=== PATIENT | female | born 1945 | race Caucasian/White ===

== ENCOUNTER 2016-08-10 08:08 | Inpatient (IN) | payer OTHER ==
[2016-06-24 12:07] VITALS: BMI 28.0
--- NOTE | 2016-06-24 12:44 | PAT Medication Instructions ---
Service Date Jun 24, 2016. Current Home Medication List Albuterol Hfa (Ventolin Hfa), 2-4 PUFFS INH Q6H Atorvastatin (Lipitor), 40 MG PO QPM Gabapentin (Neurontin), 200 MG PO QAM Lisinopril (Zestril), 10 MG PO QAM Meloxicam (Mobic), 15 MG PO QAM Metformin Hcl (Glucophage), 500 MG PO BID Pantoprazole (Protonix), 40 MG PO QAM [Clotrimazole], 1 DOSE TOP PRN Medication Instructions For Your Scheduled Surgery - Hold the following medications per surgeon's instructions: Meloxicam (Mobic), 15 MG PO QAM - Hold the following medications 48 hours prior to surgery: Metformin Hcl (Glucophage), 500 MG PO BID - Hold the following medications the morning of surgery: Lisinopril (Zestril), 10 MG PO QAM [Clotrimazole], 1 DOSE TOP PRN - Take the following medications the morning of surgery with a sip of water OTHERWISE NOTHING TO EAT OR DRINK AFTER MIDNIGHT: Albuterol Hfa (Ventolin Hfa), 2-4 PUFFS INH Q6H (use if needed; BRING TO HOSPITAL) Gabapentin (Neurontin), 200 MG PO QAM Pantoprazole (Protonix), 40 MG PO QAM - Take the following medications as scheduled the night before surgery: Albuterol Hfa (Ventolin Hfa), 2-4 PUFFS INH Q6H Atorvastatin (Lipitor), 40 MG PO QPM If you have any questions please call us at [phone] or [phone] or [phone]
[2016-06-24 13:35] LABS: BASO % 0.6 %; BASO ABS # 0.05 K/uL (0-0.2); COMPLETE YES; EOS % 8.5 %; IG% 0.3 %; LYMPH % 25.8 %; LYMPH ABS # 2.03 K/uL (1.2-3.4); MEAN CELL VOLUME 86.2 fL (80-100); MEAN CORPUSCULAR HEMOGLOBIN 28.7 pg (25-34); MEAN CORPUSCULAR HGB CONC 33.3 g/dl (32-36); MEAN PLATELET VOLUME 11.2 fL (7.4-10.4); MONO % 8.1 %; NEUT % 56.7 %; PLATELET COUNT 290 K/uL (130-400); RED BLOOD COUNT 4.87 M/uL (4.2-5.4); WHITE BLOOD COUNT 7.86 K/uL (4.8-10.8)
[2016-06-24 13:46] LABS: PROTHROMBIN TIME (PATIENT) 10.4 SECONDS (9.0-12.0)
--- NOTE | 2016-06-24 13:58 | DIAGNOSTIC IMAGING REPORT ---
CHEST PREADMISSION(PA/LAT) CLINICAL HISTORY: PAT preoperative evaluation COMPARISON STUDY: No previous studies for comparison. FINDINGS: The bones soft tissues and hemidiaphragms are normal. The cardiomediastinal silhouette is normal. The lungs are clear. The pulmonary vasculature is normal. IMPRESSION: Negative chest. Electronically signed by: Armaan Mariee M.D. 06/24/2016 1:55 PM Dictated Date/Time: 06/24/2016 1:55 PM
[2016-06-24 14:12] LABS: ESTIMATED AVERAGE GLUCOSE 137 mg/dl; HA1C FLAG Normal (Normal)
[2016-06-24 15:20] LABS: BUN/CREATININE RATIO 23.4 (10-20); CALCIUM 9.2 mg/dl (8.5-10.1); CREATININE 0.67 mg/dl (0.60-1.20)
--- NOTE | 2016-08-07 11:35 | HISTORY & PHYSICAL EXAMINATION ---
DATE OF ADMISSION: 08/10/2016 CHIEF COMPLAINT: Bilateral knee pain and discomfort, right side greater than left. HISTORY OF PRESENT ILLNESS: The patient is a 70-year-old female from [place] who presents for surgical treatment of her right knee. She has a fairly long history of bilateral knee pain and discomfort, right side greater than left. She has been through extensive conservative treatment over the years. She has been followed by Dr. Rosales recently and referred to me for definitive treatment. She has had steroid shots and viscosupplementation. She was actually scheduled to have her right knee replaced by Dr. Vargas back in May but he left town. She would now like to proceed with knee surgery. PAST MEDICAL HISTORY: 1. Diabetes fairly well controlled with hemoglobin A1c 6.4. 2. Hypertension. 3. Elevated cholesterol. 4. Gastrointestinal reflux disease. PAST SURGICAL HISTORY: Include: 1. Tonsillectomy. 2. Appendectomy. 3. Carpal tunnel release. 4. Tubal ligation. 5. Rotator cuff surgery. 6. Breast aspiration. 7. x2. ALLERGIES: PENICILLIN, REACTION UNKNOWN. Does not sound like a true anaphylactic reaction. CURRENT MEDICINES: Include: 1. Metformin 500 mg twice a day. 2. Atorvastatin 40 mg a day. 3. Gabapentin 100 mg twice a day. 4. Lisinopril 10 mg a day. 5. Meloxicam 15 mg a day. 6. Pantoprazole 40 mg a day. SOCIAL HISTORY: A 70-year-old female. She is . Does not smoke. FAMILY HISTORY: Noncontributory. REVIEW OF SYSTEMS: Significant for diabetes. Denies any chest pain or shortness of breath. No history of DVT or PE. PHYSICAL EXAMINATION: GENERAL: Reveals a pleasant, middle-aged female. She looks a little younger than her stated age. HEAD, EYES, EARS, NOSE, AND THROAT EXAMINATION: Benign. NECK: Supple. No lymphadenopathy. LUNGS: Clear to auscultation. HEART: Regular rate and rhythm. ABDOMEN: Soft, nontender, nondistended. EXTREMITY EXAMINATION: Grossly neurovascularly intact except as follows: Examination of the right knee reveals the patient ambulates with a valgus alignment to her knee. She has got a small knee effusion. Range of motion about 5 degrees short of full extension to 120 degrees of flexion. There is no instability. X-RAYS: X-rays of the knee were reviewed. It shows advanced right knee lateral compartment DJD. She has complete loss of her lateral joint space. She does have a large loose body in the suprapatellar pouch. She has got osteophytes in all 3 compartments ASSESSMENT: A 70-year-old white female with bilateral knee pain and degenerative joint disease, right side more severe than left. She has failed conservative treatment and would like to proceed with surgery. She was actually scheduled for surgery on the outside, but the surgeon left town. PLAN: We are going to take her to the operating room and do a right total knee replacement. The risks and benefits of this procedure were explained to the patient including but not limited to DVT, PE, , infection, neurological injury, vascular injury, bleeding problem, pain, limited range of motion, stiffness, failure to relieve symptoms, etc. The patient understands and desires to proceed. Informed consent was obtained. The patient is planning to be discharged home using the [facility] home health program. Her can assist in her care. She had a negative workup.
[~2016-08-10] VITALS: Ht 167.6 cm; Wt 79.0 kg
[~2016-08-10 08:08] MED LIST: ACETAMINOPHEN 500 MG TAB PO SCH; ATOR-24 PO; BUPIVACAINE 0.25% 30 ML VIAL ONE; BUPIVACAINE 0.5 % 5 MG/1 ML PF 10ML VIAL ONE; BUPIVACAINE LIPOSOME 266 MG, BUPIVACAINE/EPINEPHRINE INJ 50 ML, SODIUM CHLORIDE 0.9% PF... INFIL SCH; CEFAZOLIN 2000 MG/60 ML D5W 60 ML IV SCH; CLOTRIMAZOLE TOP; FAMOTIDINE 20 MG TAB PO SCH; GABA-112 PO; GABAPENTIN 300 MG CAP PO SCH; GLC/500 PO; LACTATED RINGER'S 1000ML 1,000 ML IV SCH; LACTATED RINGER'S 1000ML 500 ML IV ONE; LACTATED RINGER'S 1000ML IV SCH; LISI-461 PO; MELO7.5T5 PO; METOCLOPRAMIDE HCL 10 MG TAB PO SCH; PANT40TA PO; SCOPOLAMINE 1.5 MG TDSY TD SCH; TRANEXAMIC ACID INJ 1,000 MG in SODIUM CHLORIDE 0.9% 100ML 100 ML IV SCH; VNTHFA/IN INH
--- NOTE | 2016-08-10 08:56 | History & Physical Bridge Note ---
H&P Re-Evaluation Bridge Note: I have examined the patient, reviewed the History & Physical and in the interval since the performance of the History & Physical I have noted the following changes of clinical significance: No changes noted
[2016-08-10 09:08] VITALS: BP 183/93; PULSE 97; TEMP 36.4; O2SAT 99; Ht 167.6 cm; Wt 79.0 kg
[2016-08-10] MEDS ORDERED: FENTANYL CITRATE INJ 50 MCG/1 ML 2 ML VIAL ONE (09:29)
[2016-08-10] MEDS ORDERED: MIDAZOLAM HCL 1 MG/ML 2ML VIAL ONE (09:29)
[2016-08-10] MEDS ORDERED: SODIUM CHLORIDE 0.9% PF 50 ML VIAL ONE (10:44)
[2016-08-10] MEDS ORDERED: BACITRACIN 50000 UNIT VIAL ONE (10:44)
[2016-08-10] MEDS ORDERED: BUPIVACAINE LIPOSOME 1/3% 266 MG/20 ML VIAL INFIL ONE (10:44)
[2016-08-10] MEDS ORDERED: BUPIVACAINE/EPINEPHRINE 0.25% 1:200,000 30 ML VIAL ONE (10:44)
[2016-08-10] MEDS ORDERED: ONDANSETRON INJ 2 MG/ML 2 ML VIAL ONE (11:12)
[2016-08-10] MEDS ORDERED: PROPOFOL IV EMULSION 10 MG/ML 20 ML VIAL IV ONE ×2 (11:12→12:07)
[2016-08-10] MEDS ORDERED: PHENYLEPHRINE HCL INJ 10 MG/ML VIAL ONE (11:34)
--- NOTE | 2016-08-10 12:32 | [facility] Post Operative Brief Note ---
Immediate Operative Summary Operative Date August 10, 2016. Pre-Operative Diagnosis Right Knee Advanced Degenerative Joint Disease Post-Operative Diagnosis Right Knee Advanced Degenerative Joint Disease Procedure(s) Performed Right Total Knee Arthroplasty Surgeon Dr. Winter Learning Technologist Surgeon(s) Erick Schmidt PA-C Estimated Blood Loss 50 ml Findings Right Knee DJD Fluids (cc crystalloids) 1400 cc Specimens A. Right Knee Bone and Tissue Drains None Anesthesia Spinal Complication(s) None Disposition Recovery Room / PACU
[2016-08-10] MEDS ORDERED: DEXTROSE 50% 50 ML SYR IV PRN (12:45)
[2016-08-10] MEDS ORDERED: PROMETHAZINE HCL INJ 12.5 MG in SODIUM CHLORIDE 0.9% 50ML 50 ML IV PRN (12:45)
[2016-08-10] MEDS ORDERED: EpHEDrine SULFATE INJ 50 MG/ML AMP IV PRN (12:45)
[2016-08-10] MEDS ORDERED: METOCLOPRAMIDE HCL INJ 5 MG/ML 2 ML VIAL IV PRN (12:45)
[2016-08-10] MEDS ORDERED: ONDANSETRON INJ 2 MG/ML 2 ML VIAL IV PRN ×2 (12:45)
[2016-08-10] MEDS ORDERED: GLUCAGON FOR INJ 1 MG VIAL SQ PRN (12:45)
[2016-08-10] MEDS ORDERED: ATROPINE SULFATE 0.1 MG/ML 5ML SYR IV PRN (12:45)
[2016-08-10] MEDS ORDERED: ALBUTEROL HFA 8 GM INHALER INH PRN (12:45)
[2016-08-10] MEDS ORDERED: MAGNESIUM HYDROXIDE SUSP 30 ML UDC PO PRN (12:45)
[2016-08-10] MEDS ORDERED: BISACODYL 10 MG SUPP PR PRN (12:45)
[2016-08-10] MEDS ORDERED: ZOLPIDEM TARTRATE 5 MG TAB PO PRN (12:45)
[2016-08-10] MEDS ORDERED: CLOTRIMAZOLE 1% CR 15 GM TUBE EXT PRN (12:45)
[2016-08-10] MEDS ORDERED: HYDROmorphone INJ 1 MG/ML SYR IV PRN (12:45)
[2016-08-10] MEDS ORDERED: NALOXONE HCL 0.4 MG/1 ML VIAL/CARP IV PRN (12:45)
[2016-08-10] MEDS ORDERED: ALUMINUM/MAGNESIUM/SIMETH (MAALOX MAX) 30 ML UDC PO PRN (12:45)
[2016-08-10] MEDS ORDERED: GLUCOSE 40% GEL 15 GM TUBE PO PRN (12:45)
[2016-08-10] MEDS ORDERED: FLUMAZENIL 0.1 MG/1 ML 10 ML VIAL IV PRN (12:45)
[2016-08-10] MEDS ORDERED: GLUCOSE 10 TABS/TUBE PO PRN (12:45)
[2016-08-10] MEDS ORDERED: SILVER SULFADIAZINE 1% CR 50 GM JAR EXT PRN (12:45)
--- NOTE | 2016-08-10 13:13 | DIAGNOSTIC IMAGING REPORT ---
RIGHT KNEE 1 OR 2 VIEWS ROUTINE CLINICAL HISTORY: AP/LATERAL IN PACU RIGHT KNEE Right COMPARISON: None. DISCUSSION: Total joint replacement involving the right knee. Good contact between prosthetic and underlying bone. Surgical drains are in position. Expected soft tissue postoperative change IMPRESSION: Anatomic alignment status post total right knee replacement Electronically signed by: Armaan Mariee M.D. 08/10/2016 1:12 PM Dictated Date/Time: 08/10/2016 1:11 PM
--- NOTE | 2016-08-10 13:54 | OPERATIVE REPORT ---
DATE OF OPERATION: 08/10/2016 SURGEON: Jose Winter MD RANCH HAND LIVESTOCK: JUAN Gilbert PREOPERATIVE DIAGNOSIS: Right knee degenerative joint disease. POSTOPERATIVE DIAGNOSIS: Same. PROCEDURE PERFORMED: Right cemented posterior stabilized total knee arthroplasty. COMPLICATIONS: None. ESTIMATED BLOOD LOSS: 50 mL. FLUID REPLACEMENT: 1400 mL fluid replacement. TOURNIQUET TIME: 48 minutes at 300 mmHg. ANESTHESIA: Spinal with adductor canal block. DRAINS: None. SPECIMENS: Right knee sent for pathology. OPERATIVE INDICATIONS: The patient is a 70-year-old female who has had a long history of bilateral knee pain and discomfort, right side greater than left. She has been through extensive conservative treatment without adequate relief. She was actually scheduled to have her knee replaced a year ago, but the surgeon left town. She elected to proceed with treatment at this point. OPERATIVE FINDINGS: Operative findings revealed advanced right knee DJD. She had grade 4 changes in all 3 compartments. Most extensive disease was in the lateral compartment with eburnation of the posterolateral femoral condyle and most of the lateral tibial plateau. She did have extensive grade 4 changes of patellofemoral joint and some spotty grade 4 changes in the medial femoral condyle. Moderate size joint effusion. She had a valgus aligned knee. OPERATIVE IMPLANTS: Operative implants consisted of: 1. Biomet Vanguard size 67.5 right posterior stabilized femoral component. 2. Biomet size 71 tibial tray. 3. A 10 mm posterior stabilized polyethylene insert. 4. A 31 x 8 All-Poly patella. OPERATIVE PROCEDURE: The patient taken to the operating room, identified and placed on the operating table in supine position. All contact areas were appropriately padded. IV antibiotics were provided by anesthesia team. A spinal anesthetic was implemented in the holding area along with an adductor canal block. A Koenig catheter was placed. A right thigh tourniquet was then placed and the right lower extremity was then prepped and draped in the usual sterile fashion. The right leg was elevated and exsanguinated with the use of an Esmarch and tourniquet was placed at 300 mmHg. An anterior approach to the right knee was then performed through a longitudinal incision centered over the patella. Sharp dissection was carried out through the subcutaneous tissues down to the level of the extensor mechanism. A medial parapatellar arthrotomy incision was made. Some subperiosteal dissection was carried out medially. The fat pad was resected from beneath the patellar tendon. The lateral patellofemoral ligament was released. The patella was everted and knee was flexed. The osteophytes were taken off the distal femur. The ACL and PCL released from the distal femur and the tibia subluxated anteriorly. The external tibial alignment jig was then placed in the anterior face of the tibia and adjusted 14 mm medially. Proximal tibial cut was made to remove about 3-4 mm of bone from the medial side. Tibia was sized to a size 71. Attention was then drawn to the femur. The distal femur was entered with a sharp drill bit. Intramedullary canal was suctioned. A right 5 degree valgus cutting guide was placed. Distal femoral cutting block was pinned in place. Distal femoral cut was made to take an additional 3 mm of bone off the distal femur. The femur was then sized to a size 67.5. We did downsize this almost the entire size due to the narrow medial/lateral dimensions. The AP cutting block was pinned parallel to the epicondylar axis, which was 5 degrees of external rotation. The anterior cut, anterior chamfer, posterior cut, posterior chamfer cuts were made. Box cutting guide was placed and adjusted slightly lateral and the box cut was made. The knee was flexed. The remnants of the medial and lateral meniscus were excised. The osteophytes were taken off the posterior aspect of the femur. I did bring the knee out into extension and did a little pie crusting of the IT band to equalize the extension gap. I also released some of the popliteus tendon to equalize the flexion gap. The trial femoral component was placed. Tibial tray was pinned in maximum external rotation. Drill and stem punch were used to create defect in proximal tibia for the tibial tray. The knee was then trialed and the 10-mm insert fit most appropriately. Attention was then drawn to the patella. The patella was cleaned of all soft tissues. Patellar thickness measured 22 mm in thickness and was cut down to 13. It was sized to a size 31 patella. Lug holes were drilled for the 31 patella. Lateral osteophyte was removed. Patella button was placed. Knee was taken through range of motion and patella tracked nicely with no thumbs test. Attention was then drawn toward placement of the permanent components. All trial components were removed. Bone plug was placed in the distal femur to limit blood loss. A double batch of Palacos G cement was mixed. A right size 67.5 posterior stabilized femoral component, a size 71 tibial tray, a 10-mm posterior stabilized polyethylene insert, and a 31 x 8 All-Poly patella were then cemented in place. Knee was brought out into full extension until cement hardened. A final cement check was then performed. Pericapsular tissues were injected with 100 mL of a combination of 20 mL of Exparel, 30 mL of normal saline, and 50 mL of 0.25% Marcaine with epinephrine. The patient did receive 1 gram of tranexamic acid. The tourniquet was then let down for a final tourniquet time of 48 minutes. Hemostasis was assured with use of electrocautery. The extensor mechanism was then closed with a combination of #1 PDS suture and #1 Vicryl suture in a [id number] fashion. The extensor mechanism was checked and found to be intact. Subcutaneous tissues were then closed with 2-0 Dexon suture in buried interrupted fashion. Skin was closed skin shadia. Leg was then cleaned and dried and a sterile dressing of Xeroform, 4 x 4, sterile cast padding and Ulx bandage were applied. The patient then transferred to the recovery room in stable condition. The patient tolerated the procedure well with no complications. All needle and sponge counts were correct at the end of the operation. I attest to the content of the Intraoperative Record and any orders documented therein. Any exceptio ns are noted below.
--- NOTE | 2016-08-10 14:27 | Anesthesiology Progress Note ---
Anesthesia Post Op Note Date & Time August 10, 2016 at 14:27 Vital Signs Pain Intensity: 0 Vital Signs Past 12 Hours Date Time Temp Pulse Resp B/P Pulse Ox O2 Delivery O2 Flow Rate FiO2 08/10/16 14:10 36.8 08/10/16 14:07 75 08/10/16 14:07 73 16 97 08/10/16 14:06 101/57 08/10/16 14:02 77 13 98 08/10/16 14:02 75 13 08/10/16 14:01 111/61 08/10/16 13:57 79 16 08/10/16 13:57 78 16 97 08/10/16 13:56 103/57 08/10/16 13:52 79 13 97 08/10/16 13:52 80 13 08/10/16 13:51 78 16 100/60 97 08/10/16 13:51 78 16 08/10/16 13:46 77 14 107/74 97 08/10/16 13:46 77 14 08/10/16 13:41 77 13 111/59 96 08/10/16 13:41 75 13 08/10/16 13:36 74 13 114/62 96 08/10/16 13:36 74 13 08/10/16 13:31 87 16 116/66 97 08/10/16 13:31 87 16 08/10/16 13:26 82 13 113/61 97 08/10/16 13:26 80 13 08/10/16 13:21 77 13 08/10/16 13:21 77 13 103/65 96 08/10/16 13:20 36.4 08/10/16 13:17 76 14 08/10/16 13:17 77 14 96 08/10/16 13:16 111/64 08/10/16 13:12 76 13 97 08/10/16 13:12 77 13 08/10/16 13:11 105/64 08/10/16 13:07 80 12 08/10/16 13:07 79 12 96 08/10/16 13:06 115/63 08/10/16 13:04 Room Air 08/10/16 13:02 84 15 96 08/10/16 13:02 83 15 08/10/16 13:01 111/67 08/10/16 12:57 85 19 99 08/10/16 12:57 85 19 08/10/16 12:56 117/68 08/10/16 12:52 80 17 08/10/16 12:52 82 17 98 08/10/16 12:51 110/69 08/10/16 12:49 110/55 08/10/16 12:47 82 14 08/10/16 12:47 82 14 98 08/10/16 12:37 36.4 92 16 111/67 100 Mask 10 08/10/16 09:08 36.4 97 20 183/93 99 Room Air Notes Mental Status: alert / awake / arousable, participated in evaluation Pt Amnestic to Procedure: Yes Nausea / Vomiting: adequately controlled Pain: adequately controlled Airway Patency, RR, SpO2: stable & adequate BP & HR: stable & adequate Hydration State: stable & adequate Neuraxial Anesthesia: was administered, sensory block is resolving Anesthetic Complications: no major complications apparent
[2016-08-10 15:20] VITALS: BP 110/61; PULSE 80; TEMP 36.5; O2SAT 99
[2016-08-10 16:20] VITALS: BP 134/76; PULSE 78; TEMP 36.7; O2SAT 98
[2016-08-10] MEDS: CHECK SCOPOLAMINE PATCH PLACEMENT SCH (16:29)
[2016-08-10] MEDS: OXYCODONE HCL IR 5 MG TAB (IMMEDIATE RELEASE) PO PRN (16:34)
[2016-08-10] MEDS: SODIUM CHLORIDE 0.9% 1000ML 1,000 ML IV SCH ×2 (17:02→21:39)
[2016-08-10] MEDS: INSULIN HUMAN REGULAR SC SCH ×2 (17:11→21:00)
[2016-08-10 17:21] VITALS: BP 146/77; PULSE 73; TEMP 36.6; O2SAT 100
[2016-08-10] MEDS: FERROUS GLUCONATE 324 MG TAB PO SCH (17:50)
[2016-08-10] MEDS: ACETAMINOPHEN 500 MG TAB PO SCH (17:50)
[2016-08-10] MEDS: KETOROLAC TROMETHAMINE 15 MG/ML VIAL IV. SCH (17:52)
[2016-08-10] MEDS ORDERED: TRANEXAMIC ACID INJ 1,000 MG in SODIUM CHLORIDE 0.9% 100ML 100 ML IV SCH (18:00)
[2016-08-10] MEDS: CEFAZOLIN IV 1,000 MG in DEXTROSE 5% 50ML 50 ML IV SCH (19:11)
[2016-08-10 19:27] VITALS: BP 136/77; PULSE 79; TEMP 36.9; O2SAT 99
--- NOTE | 2016-08-10 19:46 | PROGRESS NOTE ---
DATE: 08/10/2016 SUBJECTIVE: A 70-year-old white female postop from a right knee replacement. She is doing well. Just starting to get some of her function back in her leg. No pain. No chest pain or shortness of breath. Not feeling dizzy or lightheaded. OBJECTIVE: VITAL SIGNS: Temperature 36.6. Vital signs stable. GENERAL: Reveals a healthy pleasant, middle-aged female. She is sitting up in bed and talking to her . She looks comfortable. LUNGS: Clear to auscultation. HEART: Has a regular rate and rhythm. ABDOMEN: Soft, nontender, nondistended. EXTREMITIES: Grossly neurovascularly intact except as follows: Examination of the right leg reveals the leg to be well aligned. Dressing is clean, dry and intact. The patient can dorsiflex and plantarflex her foot appropriately. Dressing is clean, dry and intact. She is neurologically intact. X-RAYS: X-rays of the right knee from recovery room were reviewed. It shows right cemented posterior stabilized total knee arthroplasty. Knee alignment looks good. No signs of problems. ASSESSMENT: A 70-year-old white female postop from a right knee replacement, doing well. Pain is controlled. She is neurologically intact. She is just getting the function back in her foot. Motor functions returned. PLAN: 1. DVT prophylaxis including thigh-high TEDs, SCDs, and aspirin twice a day. 2. PT/OT. Weightbearing as tolerated. Right total knee protocol. 3. Pain control, doing well with current pain regimen. We will supplement this with p.o. pain medicines and try and limit narcotics. 4. IV antibiotics x24 hours. 5. Disposition: She is hoping to be discharged to home with some home health once adequately recovered.
[2016-08-10] MEDS: ATORVASTATIN 20 MG TAB PO SCH (21:40)
[2016-08-10] MEDS: DOCUSATE SODIUM 100 MG CAP PO SCH (21:40)
[2016-08-10] MEDS: TAPENTADOL ER 50 MG TABCR PO SCH (21:40)
[2016-08-10] MEDS: ASPIRIN 325 MG ECTAB PO SCH (21:41)
[2016-08-10] MEDS: SENNA 8.6 MG TAB PO SCH (21:41)
[2016-08-10 23:05] VITALS: BP 119/67; PULSE 72; TEMP 37.1; O2SAT 99
[2016-08-11] VITALS (7 sets, daily range): BP systolic 116–139; BP diastolic 70–78; PULSE 81–93; TEMP 36.5–36.9; O2SAT 92–97
[2016-08-11] MEDS: KETOROLAC TROMETHAMINE 15 MG/ML VIAL IV. SCH ×5 (00:24→23:13)
[2016-08-11] MEDS: CEFAZOLIN IV 1,000 MG in DEXTROSE 5% 50ML 50 ML IV SCH (02:25)
[2016-08-11] MEDS: ACETAMINOPHEN 500 MG TAB PO SCH ×3 (02:26→17:29)
[2016-08-11] MEDS: SODIUM CHLORIDE 0.9% 1000ML 1,000 ML IV SCH (04:31)
[2016-08-11 06:05] LABS: HEMATOCRIT 30.8 % (37-47); MEAN CELL VOLUME 89.3 fL (80-100); MEAN CORPUSCULAR HGB CONC 32.5 g/dl (32-36); MEAN PLATELET VOLUME 11.1 fL (7.4-10.4); PLATELET COUNT 202 K/uL (130-400); RED BLOOD COUNT 3.45 M/uL (4.2-5.4); WHITE BLOOD COUNT 6.84 K/uL (4.8-10.8)
[2016-08-11 06:49] LABS: BUN/CREATININE RATIO 26.1 (10-20); CALCIUM 7.7 mg/dl (8.5-10.1); CREATININE 0.54 mg/dl (0.60-1.20); POTASSIUM 3.8 mmol/L (3.5-5.1)
--- NOTE | 2016-08-11 07:46 | Anesthesiology Progress Note ---
Anesthesia Post Op Note Date & Time August 11, 2016 at 07:45 Vital Signs Pain Intensity: 0.0 Vital Signs Past 12 Hours Date Time Temp Pulse Resp B/P Pulse Ox O2 Delivery O2 Flow Rate FiO2 08/11/16 04:45 95 Room Air 08/11/16 04:15 36.6 89 16 118/70 97 Nasal Cannula 2.0 08/11/16 00:20 Nasal Cannula 2.0 08/10/16 23:05 37.1 72 16 119/67 99 Nasal Cannula 2.0 Notes Mental Status: alert / awake / arousable, participated in evaluation Pt Amnestic to Procedure: Yes Nausea / Vomiting: adequately controlled Pain: adequately controlled Airway Patency, RR, SpO2: stable & adequate BP & HR: stable & adequate Hydration State: stable & adequate Anesthetic Complications: no major complications apparent
[2016-08-11] MEDS: INSULIN HUMAN REGULAR SC SCH ×4 (08:00→21:05)
[2016-08-11] MEDS: CHECK SCOPOLAMINE PATCH PLACEMENT SCH ×4 (08:29→23:16)
[2016-08-11] MEDS ORDERED: PANTOprazole SOD 40 MG TAB PO SCH (09:00)
[2016-08-11] MEDS: OXYCODONE HCL IR 5 MG TAB (IMMEDIATE RELEASE) PO PRN ×2 (09:36→22:04)
[2016-08-11] MEDS: DOCUSATE SODIUM 100 MG CAP PO SCH ×2 (09:37→21:00)
[2016-08-11] MEDS: ASPIRIN 325 MG ECTAB PO SCH ×2 (09:37→21:00)
[2016-08-11] MEDS: FERROUS GLUCONATE 324 MG TAB PO SCH ×3 (09:37→17:28)
[2016-08-11] MEDS: MULTIVITAMIN TAB PO SCH (09:38)
[2016-08-11] MEDS: PANTOprazole SOD 40 MG TAB PO SCH (09:39)
[2016-08-11] MEDS: GABAPENTIN 100 MG CAP PO SCH (09:39)
[2016-08-11] MEDS: LISINOPRIL 10 MG TAB PO SCH (09:48)
[2016-08-11] MEDS: TAPENTADOL ER 50 MG TABCR PO SCH ×2 (09:51→21:00)
--- NOTE | 2016-08-11 18:57 | PROGRESS NOTE ---
DATE: 08/11/2016 SUBJECTIVE: A 70-year-old white female postop day 1 from a right knee replacement. She is doing pretty well. Quite a bit of pain with therapy but doing better now. No chest pain or shortness of breath. Not feeling dizzy or lightheaded. OBJECTIVE: VITAL SIGNS: Temperature is 36.6. Vital signs stable. PHYSICAL EXAMINATION: GENERAL: Reveals a pleasant, middle-aged female. She was lying in bed, sleeping when I visited her this afternoon. She woke up quite easily. LUNGS: Clear to auscultation. HEART: Has a regular rate and rhythm. ABDOMEN: Soft, nontender, nondistended. EXTREMITIES: Grossly neurovascularly intact except as follows: Examination of the right leg reveals the dressing to be clean, dry and intact. She has quite a bit of difficulty doing a straight leg raise due to pain. She can dorsiflex and plantarflex her foot appropriately. She is neurologically intact. LABORATORY DATA: Hemoglobin 10.0. Hematocrit 30.8. Electrolytes are stable. ASSESSMENT: A 70-year-old white female postop day 1 from right knee replacement, doing pretty well. Pain is reasonably well controlled. She is neurologically intact. PLAN: 1. DVT prophylaxis including thigh-high TEDs, SCDs, and aspirin twice a day. 2. PT/OT. Weightbear as tolerated. Right total knee protocol. 3. Pain control, doing pretty well with current pain regimen. 4. Disposition: Plan to discharge to home with home health once adequately recovered.
[2016-08-11] MEDS: ATORVASTATIN 20 MG TAB PO SCH (21:00)
[2016-08-11] MEDS: SENNA 8.6 MG TAB PO SCH (21:00)
[2016-08-11] MEDS ORDERED: RXC5 PO (21:21)
[2016-08-11] MEDS ORDERED: FRRG PO (21:21)
[2016-08-11] MEDS ORDERED: ACET-1138 PO (21:21)
[2016-08-11] MEDS ORDERED: ASPEC325 PO (21:21)
[2016-08-11] MEDS ORDERED: MORP15TA19 PO (21:21)
--- NOTE | 2016-08-11 21:24 | Discharge Instructions ---
Discharge Instructions Date of Service August 11, 2016. Admission Reason for Admission: Right Knee Pain, Degenerative Joint Disease Discharge Discharge Diagnosis / Problem: Right Knee Replacement Discharge Goals Goal(s): Decrease discomfort, Improve function, Increase independence, Improve disease control, Therapeutic intervention Activity Recommendations Activity Limitations: per Instructions/Follow-up section Weightbearing Status: Right weightbearing . Instructions / Follow-Up Instructions / Follow-Up ACTIVITY RECOMMENDATIONS: Physical Therapy: * You will go to physical therapy three times each week for four to six weeks after your surgery in order to regain your knee range of motion and to retrain your knee to work properly. * It is just as important to make sure you are getting your knee perfectly straight as it is to regain your knee bend. * Taking a pain pill an hour before therapy can help you have a more productive and comfortable therapy session. Home Exercise: * You were shown a series of exercises (heel props, heel slides, etc.) in the hospital. Do these exercises three to four times each day including the exercises you were shown in physical therapy. Walking: * Get up and walk several times each day. For the first four weeks, try not to stand or walk for more than one hour at a time. If you do stand or walk for more than one hour, you will not hurt anything, but your knee and leg will likely swell. * As you feel comfortable, you may change from the walker or crutches to a cane and then to independent walking. MEDICATIONS: New Medicine: * You will likely be taking one or more of these medications: 1. MS Contin - A long-acting pain medication. Take 1 tablet twice a day for the first ten days to decrease your baseline level of pain. 2. oxycodone - A quick and shorter-acting pain medication. Take one to two tablets every four to six hours to lessen your pain. 3. Iron Sulfate - Take three times each day for the month after surgery to help you replace the blood lost during surgery. 4. Aspirin - Thins your blood to lessen the chance of forming a blood clot. * The most common side effects of pain medicine and iron are nausea and constipation. If nausea or constipation is too much of a problem or if you have any questions about your new medicines or doses, call [facility] at [phone]. We will try to help you manage these issues. VERY IMPORTANT TO READ AND REVIEW" Pain: * The immediate post-operative period after knee replacement surgery is often quite painful. * You are given a prescription for pain medicine. You should take it, as directed, when you need it, especially before physical therapy and before going to bed. Pain that interferes with sleep is very common and can last several months. * You will likely need pain medicine for the first four to six weeks. It will not stop all of the pain. The pain will lessen and as you feel better, you may change to milder pain medicine such as Tylenol. * The most common side effects of pain medicine are nausea and constipation, so don't take more than you need. SPECIAL CARE INSTRUCTIONS: TEDs/Elastic Stockings: * The white elastic stockings help limit swelling and prevent blood clots from forming in your legs. The more you wear them, the more they work. * Wear them for six weeks after knee replacement surgery and four weeks after partial knee replacement. Prevention of Infection: * Take antibiotics one hour before any dental cleaning, dental work, urological procedure, gastrointestinal procedure or any invasive surgery in order to prevent your new joint from getting infected. * You may get the antibiotics from the doctor performing the procedure or you may call our office at before and we will call in a prescription to the pharmacy of your choice. Things to Watch For: * Drainage from the incision site that occurs more than one week after your surgery. * Severely increased knee/leg pain or swelling. * Increased redness at the incision site. * Fever above 102 degrees Fahrenheit. * Unusual chest pain or shortness of breath. * Unusual pain or burning with urination. Call [facility] at with any of the above problems or if you have any questions about your medicines or recovery. FOLLOW UP VISIT: Make an appointment to see your doctor for approximately two weeks after surgery for a progress check and staple removal by calling the office at . Current Hospital Diet Patient's current hospital diet: Diabetes Type 2 Diet Discharge Diet Recommended Diet: Diabetes Type 2 Diet Procedures Procedures Performed: Right Total Knee Arthroplasty Pending Studies Studies pending at discharge: no Laboratory Results Hemoglobin A1c Test 06/24/16 12:50 Range/Units Estimated Average Glucose 137 mg/dl Hemoglobin A1c 6.4 H 4.5-5.6 % Medical Emergencies . Who to Call and When: Medical Emergencies: If at any time you feel your situation is an emergency, please call 911 immediately. . Non-Emergent Contact Non-Emergency issues call your: Surgeon . "Provider Documentation" section prepared by Jose Winter. . VTE Core Measure Inpt VTE Proph given/why not?: Other Anticoagulation, T.E.D. Stockings, SCD's
[2016-08-12] MEDS: ACETAMINOPHEN 500 MG TAB PO SCH ×2 (02:31→12:49)
[2016-08-12] MEDS ORDERED: ACETAMINOPHEN 500 MG TAB PO ONE (02:31)
[2016-08-12] MEDS: KETOROLAC TROMETHAMINE 15 MG/ML VIAL IV. SCH ×3 (05:37→12:03)
[2016-08-12] MEDS: OXYCODONE HCL IR 5 MG TAB (IMMEDIATE RELEASE) PO PRN ×2 (07:22→12:14)
--- NOTE | 2016-08-12 07:28 | PROGRESS NOTE ---
DATE: 08/12/2016 SUBJECTIVE: A 70-year-old white female postop day 2 from a right knee replacement. She is doing pretty well. Pretty painful with therapy but otherwise, pain is controlled. No chest pain or shortness of breath. Not feeling dizzy or lightheaded. OBJECTIVE: VITAL SIGNS: Temperature 36.9. Vital signs stable. PHYSICAL EXAMINATION: GENERAL: Reveals a healthy, pleasant middle-aged female. I had to wake her this morning. LUNGS: Clear to auscultation. HEART: Has a regular rate and rhythm. ABDOMEN: Soft, nontender, nondistended. EXTREMITIES: Grossly neurovascularly intact except as follows: Examination of the right leg reveals dressing to be clean, dry and intact. She can dorsiflex and plantarflex her foot appropriately. She is neurologically intact. ASSESSMENT: A 70-year-old white female postop day 2 from right knee replacement, doing pretty well. Pain has been reasonably well controlled. PLAN: 1. DVT prophylaxis including thigh-high TEDs, SCDs, and aspirin twice a day. 2. PT/OT. Weightbearing as tolerated. Right total knee protocol. 3. Pain control, doing pretty well with current pain regimen. 4. Disposition: Plan to discharge to home with some home health after therapy today.
[2016-08-12 07:46] VITALS: BP 130/80; PULSE 92; TEMP 36.6; O2SAT 96
[2016-08-12] MEDS: INSULIN HUMAN REGULAR SC SCH ×2 (08:00→12:00)
[2016-08-12 08:36] VITALS: BP 119/70; PULSE 93
[2016-08-12] MEDS: FERROUS GLUCONATE 324 MG TAB PO SCH (08:38)
[2016-08-12] MEDS: LISINOPRIL 10 MG TAB PO SCH (08:39)
[2016-08-12] MEDS: PANTOprazole SOD 40 MG TAB PO SCH (08:39)
[2016-08-12] MEDS: GABAPENTIN 100 MG CAP PO SCH (08:39)
[2016-08-12] MEDS: MULTIVITAMIN TAB PO SCH (08:40)
[2016-08-12] MEDS: TAPENTADOL ER 50 MG TABCR PO SCH (08:42)
[2016-08-12 08:51] VITALS: BP 108/72; PULSE 70
[2016-08-12] MEDS: ASPIRIN 325 MG ECTAB PO SCH (08:57)
[2016-08-12] MEDS: DOCUSATE SODIUM 100 MG CAP PO SCH (08:57)
[2016-08-12 09:02] VITALS: O2SAT 96
[2016-08-12 14:56] VITALS: BP 108/72; PULSE 70; TEMP 36.6; O2SAT 96
--- NOTE | 2016-08-18 08:32 | DISCHARGE SUMMARY ---
ADMITTING PHYSICIAN AND SURGEON: Dr. Winter. ADMITTING DIAGNOSIS: Right knee degenerative joint disease. SURGERY PERFORMED: Right total knee arthroplasty. SECONDARY DIAGNOSES: Include diabetes, hypertension, elevated cholesterol, gastroesophageal reflux disease. CONSULTS: None obtained. HISTORY AND PHYSICAL EXAMINATION: Well documented in patient's chart. HOSPITAL COURSE: The patient was admitted on 08/10/2016 and underwent total knee arthroplasty, tolerated the procedure well. There were no complications. She was transferred to the PACU postoperatively and later to the orthopedic floor for further care. She was given Ancef for antibiotic prophylaxis, MORAIMA stockings, SCDs and aspirin for DVT prophylaxis. Hemoglobin, hematocrit and vital signs were monitored during her hospital stay and remained stable. She developed some postoperative anemia, did not require any blood transfusions. There were no complications. By postoperative day 2, she was tolerating a diabetic diet. Pain was controlled with oral pain medicine. She was participating in physical therapy and had no signs or symptoms of deep vein thrombosis. On postop day 2, she was discharged home and set up with home health services. She was given printed discharge instructions including new prescriptions for extra strength Tylenol, aspirin 325 mg b.i.d., iron supplement, MS Contin and oxycodone. Continue her home medications, continue physical therapy, weightbearing as tolerated and MORAIMA stockings. Follow up in 10-12 days or sooner if there are any problems or concerns.
== END 2016-08-12 15:24 | disposition home health service (06) | DRG 470 ==
LOC: ENRESERVDT → ENRESERVTM → C.ACU 08:08 → C.3E 08:55
PROVIDERS: ADMIT Orthopaedic Surgery Sports Medicine; ATTEND Orthopaedic Surgery Sports Medicine
PROC: 0SRC0J9 Replacement of Right Knee Joint with Synthetic Substitute, Cemented, Open Approach (ICD-10-PCS; principal; 2016-08-10 10:50)
DX: M17.11 Unilateral primary osteoarthritis, right knee (principal); E78.00 Pure hypercholesterolemia, unspecified; I10 Essential (primary) hypertension; K21.9 Gastro-esophageal reflux disease without esophagitis; J45.909 Unspecified asthma, uncomplicated; M54.5 Low back pain; E11.42 Type 2 diabetes mellitus with diabetic polyneuropathy; M25.562 Pain in left knee; M25.461 Effusion, right knee; M21.061 Valgus deformity, not elsewhere classified, right knee; Z79.899 Other long term (current) drug therapy; Z79.1 Long term (current) use of non-steroidal anti-inflammatories (NSAID); Z79.84 Long term (current) use of oral hypoglycemic drugs

== ENCOUNTER 2019-10-30 08:18 | Inpatient (IN) ==
--- NOTE | 2019-10-01 16:37 | PAT Medication Instructions ---
Medication Instructions Date of Service October 01, 2019 Home Medications Potassium 1 dose PO UD albuterol sulfate [Ventolin HFA] 2 inh INHALATION UD PRN atorvastatin 40 mg PO QPM calcium carbonate-vitamin D3 2 cap PO DAILY docusate sodium [Stool Softener] 200 mg PO HS gabapentin 200 mg PO BID lisinopril 10 mg PO QAM meloxicam 15 mg PO QAM metformin 500 mg PO BID pantoprazole 40 mg PO QAM ASK your surgeon for instructions meloxicam 15 mg PO QAM DO NOT take the morning of surgery Potassium 1 dose PO UD calcium carbonate-vitamin D3 2 cap PO DAILY lisinopril 10 mg PO QAM metformin 500 mg PO BID Take morning of surgery With a small sip of water, OTHERWISE NOTHING TO EAT OR DRINK AFTER MIDNIGHT: albuterol sulfate [Ventolin HFA] 2 inh INHALATION UD PRN (if needed) gabapentin 200 mg PO BID pantoprazole 40 mg PO QAM Take evening before surgery Potassium 1 dose PO UD (if needed) albuterol sulfate [Ventolin HFA] 2 inh INHALATION UD PRN (if needed) atorvastatin 40 mg PO QPM docusate sodium [Stool Softener] 200 mg PO HS gabapentin 200 mg PO BID metformin 500 mg PO BID Other Notes If you have any questions please call us at [phone] or [phone] or [phone] or [phone]
--- NOTE | 2019-10-02 10:10 | Anesthesiology Consultation ---
Date of Service October 02, 2019 Assessment & Plan (1) Encounter for pre-operative examination: COVID Status: As of 10/01 assessment, patient denies travel to endemic area, known exposure/sick contacts, or symptoms of COVID19. Patient instructed to follow strict social distancing guidelines, wear a mask in public and avoid travel for 14 days prior to surgery. Preoperative COVID19 testing to be completed prior to surgery. Patient made aware to self-isolate as much as possible between COVID testing and surgery. Chart Review Chart Review: Acceptable Risk for Surgery and Patient seen in Pre Admission Testing Teaching & Discussion Instructed NPO after midnight before surgery, except medications with 15 cc of water. Medication instructions provided according to the PAT guidelines. 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) Medications Home Medications Medication Instructions Recorded Confirmed Last Taken Potassium 1 dose PO UD 04/24/19 09/24/19 Unknown albuterol sulfate [Ventolin HFA] 2 inh INHALATION UD PRN 04/24/19 09/24/19 Unknown atorvastatin 40 mg PO QPM 04/24/19 09/24/19 Unknown calcium carbonate-vitamin D3 2 cap PO DAILY 04/24/19 09/24/19 Unknown [Calcium 600 + D(3)] docusate sodium [Stool Softener] 200 mg PO HS 04/24/19 09/24/19 Unknown gabapentin 200 mg PO BID 04/24/19 09/24/19 Unknown lisinopril 10 mg PO QAM 04/24/19 09/24/19 Unknown meloxicam 15 mg PO QAM 04/24/19 09/24/19 Unknown metformin 500 mg PO BID 04/24/19 09/24/19 Unknown pantoprazole 40 mg PO QAM 04/24/19 09/24/19 Unknown Past Medical History Medical History Acid reflux controlled Arthritis Diabetes NIDDM Diverticulosis Hyperlipidemia Hypertension Seasonal allergies on as needed inhaler (rare use), denies diagnosis of asthma/COPD. Had particularly bad allergies this past spring and "couldn't breathe" so was tested for COVID19 -- results negative. Slow to wake up after anesthesia Remote hx with breast biopsy, ended up being kept overnight when was supposed to be discharged that day. Has had subsequent surgeries with no issues. Trouble swallowing food dysphagia (chronic); PCP monitoring Exercise / Class Metabolic Activity II 4-5 Yardwork/Stairs/Walk up hill (Denies CP or SOB with 1 FOS) Past Family History Family History Other Family history of diabetes mellitus in mother No family history of adverse response to anesthesia Past Surgical History Surgical History History of 2 sections History of appendectomy History of breast biopsy History of colonoscopy History of left cataract surgery History of repair of rotator cuff History of right cataract surgery History of tonsillectomy History of total right knee replacement History of tubal ligation Past Anesthesia History No Hx of Anesthesia Complications and No Family Hx of Anesthesia Complications History of PONV No Hx of Motion Sickness and History of PONV (only with ether as a child) Social History Smoking Status: Never smoker Do You Dip or Chew Tobacco: No Hx Alcohol Use: No Hx Substance Use: No substance use type: does not use Review of Systems Pt denies any recent chest pain, shortness of breath, palpitations, cough, fever or URI. Physical Exam Vital Signs BP: 152/91 (pt is very nervous about having blood work today) P: 91bpm SPO2: 99% RA T: 98.5 F R: 16 ENMT Mouth: + dentures (full upper); no chipped teeth and no loose teeth Thyromental Distance: > or= 3.5 Finger Breadths (3.5) Mallampati Class: I Neck normal visual inspection; neck extension not limited Respiratory normal respiratory effort Auscultation: lungs clear to auscultation bilaterally Cardiovascular Rate/Rhythm: regular rhythm and + tachycardic Heart Sounds: no murmur Vessels: no carotid bruit Extremities: no edema Testing Laboratory Results 10/02/19 10:20 10/02/19 10:20 PT 10.5 Seconds (9.0-12.0) 10/02/19 10:20 INR 1.0 (0.9-1.1) 10/02/19 10:20 APTT 26.1 Seconds (21.0-31.0) 10/02/19 10:20 Hemoglobin A1c 6.2 % (4.5-5.6) H 10/02/19 10:20 Blood Type B Positive 10/02/19 10:20 Antibody Screen NEGATIVE 10/02/19 10:20 Electrocardiogram Date: 04/30/19 Findings: + NSR @ (89bpm) Chest X-Ray Date: 04/30/19 Minimal left basilar opacities likely atelectasis or scarring. No convincing evidence of acute cardiopulmonary disease.
[2019-10-02 11:09] LABS: Basophils # (auto) 0.03 K/uL (0-0.2); Basophils % (auto) 0.5 %; Eosinophils # (auto) 0.36 K/uL (0-0.5); Eosinophils % (auto) 6.4 %; Hematocrit (blood only) 41.3 % (37-47); Hemoglobin 13.4 g/dL (12.0-16.0); Immature Granulocytes # (auto) 0.01 K/uL (0.00-0.02); Immature Granulocytes % (auto) 0.2 %; Lymphocytes # (auto) 1.63 K/uL (1.2-3.4); Lymphocytes % (auto) 28.9 %; Mean Corpuscular Hemoglobin 28.9 pg (25-34); Mean Corpuscular Hgb Conc 32.4 g/dL (32-36); Mean Platelet Volume 11.4 fL (7.4-10.4); Monocytes % (auto) 8.9 %; Neutrophils # (auto) 3.11 K/uL (1.4-6.5); Neutrophils % (auto) 55.1 %; Platelet Count 250 K/uL (130-400); RDW Coefficient of Variation 13.1 % (11.5-14.5); RDW Standard Deviation 42.7 fL (36.4-46.3); Red Blood Count 4.64 M/uL (4.2-5.4); White Blood Count 5.64 K/uL (4.8-10.8)
[2019-10-02 11:18] LABS: BUN Creatinine Ratio 20.6 (10-20); Blood Urea Nitrogen 15 mg/dl (7-18); Calcium 8.6 mg/dl (8.5-10.1); Carbon Dioxide 29 mmol/L (21-32); Chloride 107 mmol/L (98-107); Creatinine Clr Calc Pharmacy 72.6 ml/min; Est GFR (Non-African American) 83.7; Glucose 111 mg/dl (70-99); Potassium 3.7 mmol/L (3.5-5.1); Sodium 141 mmol/L (136-145)
[2019-10-02 11:19] LABS: C Reactive Protein < 0.29 mg/dl (0-0.29)
[2019-10-02 11:23] LABS: Partial Thromboplastin Ratio 0.9; Partial Thromboplastin Time 26.1 Seconds (21.0-31.0); Prothrombin Time 10.5 Seconds (9.0-12.0)
[2019-10-02 11:52] LABS: Estimated Average Glucose 131 mg/dl; Hemoglobin A1C 6.2 % (4.5-5.6)
--- NOTE | 2019-10-27 12:07 | History and Physical Report ---
DATE OF ADMISSION: 10/30/2019 CHIEF COMPLAINT: Left knee pain and discomfort. HISTORY OF PRESENT ILLNESS: The patient is a 74-year-old female who presents for surgical treatment of her left knee. She has got a long history of left knee pain and discomfort that has gradually gotten worse over time. She has been through extensive conservative treatment which has become less successful over time. She had a right knee replaced back in 07/2016 and has done well from this. She is limited by her left knee pain and discomfort. It is global pain. Shots provide very short term relief. She was actually scheduled for left knee replacement in the past, but canceled due to the COVID epidemic. She would like to reschedule and get her knee fixed. PAST MEDICAL HISTORY: Past medical history significant for: 1. Diabetes x6-8 years with an A1c of 6.4. 2. Hypertension. 3. Elevated cholesterol. 4. Gastroesophageal reflux disease. 5. Low back pain/sciatica. PAST SURGICAL HISTORY: Previous surgeries include: 1. Tubal ligation. 2. Right rotator cuff repair. 3. Right knee replacement done 08/10/2016. 4. Breast surgery. 5. x2. 6. Tonsillectomy. 7. Appendectomy. ALLERGIES: PENICILLIN. REACTIONS UNKNOWN. CURRENT MEDICINES: Include: 1. Metformin. 2. Atorvastatin. 3. Lisinopril. 4. Gabapentin. 5. Meloxicam. SOCIAL HISTORY: A 74-year-old female. She lives in [place]. She does not smoke. FAMILY HISTORY: Noncontributory. REVIEW OF SYSTEMS: Significant for diabetes. Denies any current chest pain or shortness of breath. No history of DVT or PE. No known bleeding problems. PHYSICAL EXAMINATION: GENERAL: Shows a pleasant, middle-aged female. Looks to be in pretty good health. HEENT: Benign. NECK: Supple, no lymphadenopathy. LUNGS: Clear to auscultation. HEART: Regular rate and rhythm. ABDOMEN: Soft, nontender, nondistended. EXTREMITIES: Grossly neurovascularly intact except as follows. Examination of the left knee reveals the patient walks with a bit of a stiff knee gait. She limps on the left side. She has got small knee effusion. Knee alignment looks pretty straight. Range of motion about 5 degrees short of full extension to 120 degrees of flexion. No instability. Examination of the right knee reveals well-healed incision. No swelling. Range of motion 0-120. Good straight leg raise. X-RAYS: X-rays of the left knee were reviewed. It shows advanced left knee tricompartment DJD. She has got osteophytes in all 3 compartments. She has got near complete loss of her medial joint space. The right knee replacement looks to be in good position without signs of problems. ASSESSMENT: A 74-year-old female, about 3 years out from a right knee replacement with advanced left knee degenerative joint disease. She has failed conservative treatment. She was scheduled for surgery in the past, but canceled due to COVID epidemic and would like to proceed now. She does have multiple medical comorbidities including diabetes, hypertension, elevated cholesterol, gastroesophageal reflux disease and chronic back pain/sciatica. PLAN: We will take her to the Operating Room and do a left total knee replacement. The risks and benefits of this procedure were explained to the patient include but not limited to DVT, PE, , infection, neurological injury, vascular injury, bleeding problem, pain, limited range of motion, stiffness, failure to relieve her symptoms, incomplete relief of symptoms, need for further surgery in future, fracture, leg length inequality, nerve palsy, persistent pain, etc. The patient understands and desires to proceed. Informed consent was obtained. We did talk about holding her metformin and lisinopril on the morning of surgery. She is hoping to be discharged home using [facility].
[~2019-10-30 08:18] MED LIST changes: -ATOR-24 PO; -BUPIVACAINE 0.25% 30 ML VIAL ONE; -BUPIVACAINE LIPOSOME 266 MG, BUPIVACAINE/EPINEPHRINE INJ 50 ML, SODIUM CHLORIDE 0.9% PF... INFIL SCH; +BUPIVACAINE LIPOSOME/PF 266 MG, BUPIVACAINE/EPINEPHRINE 50 ML, SODIUM CHLORIDE 0.9% 30 ... INFIL SCH; -CEFAZOLIN 2000 MG/60 ML D5W 60 ML IV SCH; +CEFAZOLIN 2000MG 2,000 MG/15 ML SYR IV SCH; -CLOTRIMAZOLE TOP; +EPINEPHrine INJ 1 MG/ML AMP ONE; -GABA-112 PO; -GLC/500 PO; -LACTATED RINGER'S 1000ML 1,000 ML IV SCH; -LACTATED RINGER'S 1000ML 500 ML IV ONE; -LACTATED RINGER'S 1000ML IV SCH; -LISI-461 PO; +LR 500ML BOLUS, THEN 15ML/HR IV SCH; +LR 60ML/HR IV SCH; -MELO7.5T5 PO; -METOCLOPRAMIDE HCL 10 MG TAB PO SCH; +METOCLOPRAMIDE HCL 10 MG TABLET PO SCH; -PANT40TA PO; +ROPIVACAINE 0.5% 5 MG/ML 30 ML VIAL ONE; -SCOPOLAMINE 1.5 MG TDSY TD SCH; +TRANEXAMIC ACID 1,000 MG **IV Intra-op IV SCH; -TRANEXAMIC ACID INJ 1,000 MG in SODIUM CHLORIDE 0.9% 100ML 100 ML IV SCH; -VNTHFA/IN INH
--- NOTE | 2019-10-30 09:28 | History & Physical Bridge Note ---
Date of Service October 30, 2019 History & Physical Bridge Note I have examined the patient, reviewed the History & Physical and in the interval since the performance of the History & Physical I have noted the following changes of clinical significance: no changes noted
[2019-10-30] MEDS ORDERED: BUPIVACAINE/EPINEPHRINE 0.25% 1:200,000 30 ML VIAL ONE (09:40)
[2019-10-30] MEDS ORDERED: BUPIVACAINE LIPOSOME 1.3% 266 MG/20 ML VIAL ONE (09:40)
[2019-10-30] MEDS ORDERED: SODIUM CHLORIDE 0.9% PF 50 ML VIAL ONE (09:40)
[2019-10-30] MEDS ORDERED: BACITRACIN INJ 50,000 UNIT VIAL ONE (09:40)
[2019-10-30] MEDS ORDERED: ATROPINE SULFATE 0.1 MG/ML 10ML SYR IV PRN (10:20)
[2019-10-30] MEDS ORDERED: PHENYLEPHRINE 100MCG/ML 5ML SYR IV PRN (10:20)
[2019-10-30] MEDS ORDERED: MEPERIDINE HCL 25 MG/ML CARP/VIAL IV PRN (10:20)
[2019-10-30] MEDS ORDERED: ONDANSETRON INJ 2 MG/ML 2 ML VIAL IV PRN ×2 (10:20→14:17)
[2019-10-30] MEDS ORDERED: fentaNYL citrate 100 MCG/2 ML VIAL IV PRN (10:20)
[2019-10-30] MEDS ORDERED: ePHEDrine sulfate 50 MG/ML AMP IV PRN (10:20)
[2019-10-30] MEDS ORDERED: LABETALOL HCL IV 5 MG/ML 20ML IV PRN (10:20)
[2019-10-30] MEDS ORDERED: MIDAZOLAM HCL 1 MG/ML 2ML VIAL ONE ×2 (10:47)
[2019-10-30] MEDS ORDERED: LIDOCAINE HCL 2% 2 ML VIAL/AMP(20MG/ML) INFIL ONE (10:47)
[2019-10-30] MEDS ORDERED: PROPOFOL IV EMULSION 10 MG/ML 20 ML VIAL IV ONE (10:47)
[2019-10-30] MEDS ORDERED: GLYCOPYRROLATE 0.2 MG/ML VIAL ONE (12:02)
[2019-10-30] MEDS ORDERED: PHENYLEPHRINE HCL 10 MG/ML VIAL ONE (12:14)
--- NOTE | 2019-10-30 13:43 | Post Operative Brief Note ---
PG Immediate Post Op with CF Date of Surgery October 30, 2019 Pre & Post Diagnosis Operation Date: 10/30/19 10:40 Pre-Op Diagnosis: Left Knee Degenerative Joint Disease Post-Op Diagnosis: Left Knee Degenerative Joint Disease I identified the patient and participated in the time-out.: Yes Procedure Operation Date: 10/30/19 10:40 Actual Procedures p Left Total Knee Arthroplasty, Cemented(Left) - Jose Winter MD Surgeon Jose Winter MD Dredge Mechanic Minor, PAC Estimated Blood Loss 50 Findings Consistent with Post-Op Diagnosis Fluids 1300 cc Specimens Specimen Description: Permanent Specimen A: Left knee bone and tissue Drains Koenig Catheter Anesthesia Type Spinal MAC Complications none Disposition Accompanied Patient To Recovery: No Disposition: Recovery Room
--- NOTE | 2019-10-30 14:00 | Anesthesiology Progress Note ---
Date of Service October 30, 2019 Anesthesia Post Procedure Vital Signs Vital Signs: Temp Pulse Pulse Resp BP Pulse Ox 10/30/19 13:55 84 20 120/65 100 10/30/19 13:46 36.8 C 95 H 16 124/69 100 10/30/19 09:02 37.1 C 88 18 165/97 H 100 Transfer of Care Handoff Completed per policy Notes Mental Status: alert / awake / arousable Patient Amnestic to Procedure: Yes Nausea / Vomiting: adequately controlled Pain: adequately controlled Airway Patency, RR, SpO2: stable & adequate BP & HR: stable & adequate Hydration State: stable & adequate Neuraxial Anesthesia: was administered and sensory block is resolving Anesthetic Complications: no major complications apparent and Pt Satisfied with anesthetic care
--- NOTE | 2019-10-30 14:05 | XRay Report ---
LEFT KNEE 2 VIEWS History: Left total knee arthroplasty. Degenerative arthritis. Postop. FINDINGS: The patient is status post a left total knee arthroplasty. The hardware is intact. No fract ure or dislocation. Skin shadia are in place. IMPRESSION: Left total knee arthroplasty. No evidence for hardware complication. ACT 112: Negative or not required by law. Electronically signed by: Eriberto Piedra M.D. 10/30/2019 2:04 PM
[2019-10-30] MEDS ORDERED: ALBUTEROL HFA 8 GM INHALER INH PRN (14:17)
[2019-10-30] MEDS ORDERED: TRAMADOL HCL 50 MG TABLET PO PRN (14:17)
[2019-10-30] MEDS ORDERED: DEXTROSE 50% 50 ML SYRINGE IV PRN (14:17)
[2019-10-30] MEDS ORDERED: GLUCOSE 10 TABS/TUBE PO PRN (14:17)
[2019-10-30] MEDS ORDERED: NON-FORMULARY MEDICATION (Potassium 1 EA) PO SCH (14:17)
[2019-10-30] MEDS ORDERED: CARBOHYDRATES FOR HYPOGLYCEMIA PO PRN (14:17)
[2019-10-30] MEDS ORDERED: GLUCAGON FOR INJ 1 MG VIAL SQ PRN (14:17)
[2019-10-30] MEDS ORDERED: TAMSULOSIN HCL 0.4 MG CAP PO PRN (14:17)
[2019-10-30] MEDS ORDERED: NALOXONE HCL 0.4 MG/1 ML VIAL/CARP IV PRN (14:17)
[2019-10-30] MEDS ORDERED: HYDROmorphone INJ 0.5 MG/0.5 ML SYR IV PRN (14:17)
[2019-10-30] MEDS ORDERED: ALUMINUM/MAGNESIUM SUSP 30 ML UDC PO PRN (14:17)
[2019-10-30] MEDS ORDERED: GLUCOSE 40% GEL 15 GM TUBE PO PRN (14:17)
[2019-10-30] MEDS ORDERED: METOCLOPRAMIDE HCL INJ 5 MG/ML 2 ML VIAL IV PRN (14:17)
[2019-10-30] MEDS ORDERED: bisacodyL 10 MG SUPP PR PRN (14:17)
[2019-10-30] MEDS ORDERED: PHARMACY GLYCEMIC MGMT CONSULT PRN (14:51)
--- NOTE | 2019-10-30 14:57 | Pharmacy Report ---
Glycemic Control Consultation - Date of Service October 30, 2019 - Scope Scope: Glycemic Pharmacist consulted for glycemic control and to write orders per [facility] inpatient glycemic control protocol. - Objective Weight: 72.6 kg Accuchecks BSG (last 24hrs): 10/30/19 10/30/19 08:59 13:48 POC Glucose 112 H 116 H HbA1c: Hemoglobin A1c 6.2 % (4.5-5.6) H 10/02/19 10:20 - Recent Pertinent Medications Outpatient Anti-diabetic Regimen: * Metformin 500 mg PO BID * A1c = 6.2% on 10/02/19 Risk Factors for Insulin Resistance: * Steroids: none * Infection: Ancef 1 gm IV q8h x 2 doses post op. * Pressors: none * IVF: NS @ 100 ml/hr * Recent Surgery: POD 0 L TKA * Diet: T2DM - Assessment & Plan Assessment & Plan: ASSESSMENT: * 74 y/o F admitted for L TKA. Patient with Type 2 diabetes managed at home on oral Metformin. * Oral agents are not recommended for inpatient use d/t drug interactions, changing PO intake, and difficulty titrating for acute hyper/hypoglycemia. ADA recommends re-initiating outpatient oral agents 1-2 days prior to discharge if/when appropriate if they were held on admission. * Will hold oral agents for admission and utilize SQ basal bolus insulin regimen which is the recommended regimen for inpatient glycemic control. Will initiate medium stress, weight based insulin dosing for insulin sukh patient and titrate based on BSG trends. * Basal insulin is not needed based on A1c, pre-op BSGs, and minimal risk factors for insulin resistance such as no steroid use prior to surgery. PLAN FOR INPATIENT GLYCEMIC CONTROL: * Holding outpatient oral diabetes medications * Basal insulin: none * Bolus insulin * NovoLog per scale ACHS or Q6hrs while NPO * Goal Range: Low 110 mg/dL - High 140 mg/dL * Correction Factor: 30 mg/dL/unit * Nutritional / Prandial insulin per carb ratio of 1 unit per 11 grams CHO consumed * Please note that the plan above was derived based on current level of insulin resistance and hospital stress. These recommendations are appropriate for inpatient admission only. Plan of care upon discharge will need to be reassessed to avoid potential outpatient hypo/hyperglycemia.
[2019-10-30] MEDS: SODIUM CHLORIDE 0.9% 1000ML 1,000 ML IV SCH ×2 (15:10→23:48)
[2019-10-30] MEDS: KETOROLAC TROMETHAMINE 15 MG/ML VIAL IV SCH ×2 (15:11→21:07)
[2019-10-30] MEDS ORDERED: PNEUMOCOCCAL Polysaccharide Vaccine 25mcg/0.5mL vial/Syr IM ONE (16:45)
[2019-10-30] MEDS: ACETAMINOPHEN 500 MG TAB PO SCH ×2 (16:47→22:04)
[2019-10-30] MEDS: FERROUS GLUCONATE 324 MG TAB PO SCH (16:47)
[2019-10-30] MEDS: ASCORBIC ACID 500 MG TAB PO SCH (16:47)
[2019-10-30] MEDS: INSULIN ASPART 100 UNITS/ML 3 ML PEN SC SCH ×2 (16:52→22:08)
--- NOTE | 2019-10-30 18:42 | Operative Report ---
Post Operative Report Pre & Post Diagnosis Operation Date: 10/30/19 10:40 Pre-Op Diagnosis: Left Knee Degenerative Joint Disease Post-Op Diagnosis: Left Knee Degenerative Joint Disease I identified the patient and participated in the time-out.: Yes Procedure Operation Date: 10/30/19 10:40 Actual Procedures p Left Total Knee Arthroplasty, Cemented(Left) - Jose Winter MD Surgeon Jose Winter MD Manager Medicare Marketing Minor, PAC Estimated Blood Loss 50 Findings Consistent with Post-Op Diagnosis Operative findings revealed advanced left knee DJD with some grade 4 changes in all 3 compartments most severe in the medial side. Had some mild eburnation of the medial to plateau and some focal eburnation medial femoral condyle but mostly just full-thickness cartilage loss. Moderate-sized joint effusion. Fluids 1300 cc. Specimens Left knee sent for pathology. Drains None. Anesthesia Type Spinal MAC Complications none Disposition Accompanied Patient To Recovery: Yes Disposition: Recovery Room Indications Patient is a 74-year-old female who is been a long history of bilateral knee pain discomfort. She underwent a right knee replacement about 3 years ago is done well from this. She is continued be limited by left knee pain and discomfort. She also failed all conservative measures. She elected to see with total knee arthroplasty. Description of Procedure Operative implants consisted of: 1. Biomet Vanguard size 65 left posterior stabilized femoral component. 2. Biomet size 71 tibial tray. 3. 10 mm posterior stabilized polyethylene insert. 4. 28 x 8 all poly-patella. Patient was taken to the operating room identified and placed on the operating table supine position protectors were properly padded. IV antibiotics arrived by anesthesia team. A spinal anesthetic and abductor canal block had been provided in the holding area. Koenig catheter was placed in sterile fashion. Left thigh tip was then placed in the left lower extremities and prepped and draped in usual sterile fashion. The left leg was elevated exsanguinated with use of an Esmarch and a tourniquet was placed at 300 mmHg. An anterior posterior left knee was then performed to longitudinal incision centered over the patella. Sharp dissection was got through subcutaneous tissue down to level the extensor mechanism. A medial parapatellar arthrotomy incision was made. Some subperiosteal dissection was carried out medially. The fat pad was resected from each patella tendon. Lateral patellofemoral ligament was released. Patella was subluxated laterally and the knee was flexed. The osteophytes were taken off distal femur. The ACL and PCL were then released from distal femur and the tibia subluxate anteriorly. The external tibial alignment jig was then placed in the interface the tibia and adjusted 14 mm medially. Proximal tibial cut was made to remove about 2 mm of bone from most efficient aspect medial till plateau. The tibia was sized to a size 71. Attention drawn the femur. The distal femur was entered with a sharp drop with intramedullary canal was suction. A left 5 degree valgus cutting guide was placed. This femoral cutting block was pinned in place. Distal femoral cut was made to take an additional 3 mm of bone off distal femur. The femur was then sized to a size 65. The AP cutting block was pinned parallel to the epicondylar axis which was 5 degrees of external rotation. The anterior cut, anterior chamfer, posterior cut, posterior chamfer cuts were made. Box cutting guide was placed in just slight lateral and the box cut was made. The knee was flexed. The remnants of the medial lateral menisci were excised. The osteophytes were taken off the posterior aspect of the femur. A trial femoral component was placed for the tibial tray was pinned in maximum external rotation and the drill and stem punch were used to create defect in proximal tibia for the tibial tray. The knee was then trialed and the 10 mm insert fit most appropriately. Attention drawn the patella. The patella was cleaned of all soft tissues. Patella thickness measured 20 mm in thickness was cut down to 13. It was sized to a size 28 patella. Locals were drilled for the 28 patella. Lateral osteophyte was removed. The patella button was placed. Knee was taken through range of motion patella tracked nicely with no thumbs test. Attention drawn to place the permanent components. All trial components were removed. Bone plug was placed in the distal femur limit blood loss put a double batch of [place]os G cement was mixed. A Biomet Vanguard size 65 left posterior by femoral component, size 71 tibial tray, 10 mm posterior box polyethylene insert, 28 x 8 all poly-patella then cement in place. The knee was brought out into full extension until cement hardened. Final cement check was then performed. Pericapsular tissues were injected with total 100 cc of combination of 20 cc of Exparel, 30 cc normal saline, 50 cc of quarter percent Marcaine with epinephrine. Patient did receive 1 g of tranexamic acid per the tourniquet was then let down for final tourniquet time 63 minutes. Hemostasis assured use electrocautery. The extensor neck was then closed with combination 1 PDS suture #1 Vicryl suture in [id number] fashion. Extensor mechanism checked found to be intact the subcutaneous tissue then closed with 2 Dexon suture in a buried interrupted fashion skin was closed skin shadia. Leg was then cleaned dried and sterile dressing composed Xeroform, 4 x 4's, sterile cast padding, Lux bandage were applied. Patient transferred to the recovery room in stable condition. Patient tolerated procedure well no complications. Nabeel Prater, my physician intellectual property legal assistant, was present for the entire procedure. His assistance was required and essential to perform this operation including positioning the patient, surgical exposure, performing the technical aspects of the operation, placement the implants, closure of the wound, and placement of the sterile bandage. I attest to the content of the Intraoperative Record and any orders documented therein. Any exceptions are noted below.
[2019-10-30] MEDS ORDERED: TRANEXAMIC ACID / 0.7% NACL 1,000 MG/100 ML BAG IV SCH (19:47)
[2019-10-30] MEDS ORDERED: DOCUSATE SODIUM 100 MG CAP PO SCH (21:00)
[2019-10-30] MEDS: CEFAZOLIN 1000MG 1,000 MG/7.5 ML SYR IV SCH (21:07)
[2019-10-30] MEDS: DOCUSATE SODIUM 100 MG CAP PO SCH (21:08)
[2019-10-30] MEDS: ASPIRIN 81 MG ECTAB PO SCH (21:08)
[2019-10-30] MEDS: SENNA 8.6 MG TAB PO SCH (21:08)
[2019-10-30] MEDS: GABAPENTIN 100 MG CAP PO SCH (21:09)
[2019-10-30] MEDS: ATORVASTATIN 40 MG TAB PO SCH ×2 (21:09→21:11)
[2019-10-31] MEDS: KETOROLAC TROMETHAMINE 15 MG/ML VIAL IV SCH ×4 (03:55→21:25)
[2019-10-31] MEDS: CEFAZOLIN 1000MG 1,000 MG/7.5 ML SYR IV SCH (04:05)
[2019-10-31] MEDS: ACETAMINOPHEN 500 MG TAB PO SCH ×3 (06:01→21:25)
[2019-10-31 06:03] LABS: Hematocrit (blood only) 34.3 % (37-47); Hemoglobin 10.9 g/dL (12.0-16.0); Mean Corpuscular Hemoglobin 28.8 pg (25-34); Mean Corpuscular Hgb Conc 31.8 g/dL (32-36); Mean Corpuscular Volume 90.5 fL (80-100); Platelet Count 213 K/uL (130-400); RDW Coefficient of Variation 13.3 % (11.5-14.5); RDW Standard Deviation 43.5 fL (36.4-46.3); Red Blood Count 3.79 M/uL (4.2-5.4); White Blood Count 6.97 K/uL (4.8-10.8)
[2019-10-31 06:29] LABS: BUN Creatinine Ratio 21.9 (10-20); Calcium 7.5 mg/dl (8.5-10.1); Creatinine Clr Calc Pharmacy 75.2 ml/min; Est GFR (African American) 100.8; Potassium 3.8 mmol/L (3.5-5.1)
[2019-10-31] MEDS: ASCORBIC ACID 500 MG TAB PO SCH ×2 (07:49→17:34)
[2019-10-31] MEDS: FERROUS GLUCONATE 324 MG TAB PO SCH ×2 (07:49→17:34)
[2019-10-31] MEDS: DOCUSATE SODIUM 100 MG CAP PO SCH ×2 (08:45→21:24)
[2019-10-31] MEDS: ASPIRIN 81 MG ECTAB PO SCH ×2 (08:45→21:25)
[2019-10-31] MEDS: CALCIUM 600MG + VIT D 400 IU TAB PO SCH (08:45)
[2019-10-31] MEDS: PANTOprazole 40 MG TAB PO SCH (08:46)
[2019-10-31] MEDS: MULTIVITAMIN TAB PO SCH (08:46)
[2019-10-31] MEDS: lisinopriL 10 MG TAB PO SCH (08:46)
[2019-10-31] MEDS: GABAPENTIN 100 MG CAP PO SCH ×2 (08:46→21:24)
[2019-10-31] MEDS: INSULIN ASPART 100 UNITS/ML 3 ML PEN SC SCH ×4 (08:52→21:26)
--- NOTE | 2019-10-31 09:09 | Progress Notes ---
DATE: 10/31/2019 SUBJECTIVE: A 74-year-old female postop day 1 from a left knee replacement. She is doing pretty well. Her pain has been controlled overnight. No chest pain or shortness of breath. Not feeling dizzy or lightheaded. OBJECTIVE: VITAL SIGNS: Temperature 36.6. Vital signs stable. GENERAL: Physical examination shows a pleasant, middle-aged female. She is lying in bed, looks pretty comfortable. LUNGS: Clear to auscultation. HEART: Has a regular rate and rhythm. ABDOMEN: Soft, nontender, nondistended. EXTREMITIES: Grossly neurovascularly intact except as follows. Examination of the left leg reveals the leg to be well aligned. Dressing is clean, dry and intact. She can dorsiflex and plantarflex her foot appropriately. She is neurologically intact. LABORATORY DATA: Hemoglobin 10.9. Hematocrit 34.3. Electrolytes are stable. ASSESSMENT: A 74-year-old white female postop day 1 from left knee replacement, doing pretty well. Pain is controlled. She is neurologically intact. PLAN: 1. DVT prophylaxis include thigh-high TEDs, SCDs and aspirin twice a day. 2. PT/OT, weightbear as tolerated. Left total knee protocol. 3. Pain control, doing pretty well with current pain regimen. 4. Disposition. She is planning to be discharged to home with some home health once adequately recovered and medically stable.
--- NOTE | 2019-10-31 09:59 | Pharmacy Report ---
Glycemic Ortho Sign Off Note - Date of Service October 31, 2019 - Scope Glycemic Pharmacist consulted for glycemic control and to write orders per [facility] inpatient glycemic control protocol. - Objective Accuchecks BSG (last 24hrs):: 10/30/19 10/30/19 10/30/19 13:48 16:40 20:38 Glucose POC Glucose 116 H 101 H 108 H 10/31/19 10/31/19 05:24 08:06 Glucose 87 POC Glucose 97 HbA1c:: Hemoglobin A1c 6.2 % (4.5-5.6) H 10/02/19 10:20 - Assessment * Patient received total of 2 units of bolus insulin yesterday. Fasting AM BSG today is at goal. * Pt is maintained on oral antidiabeticagent[s]as anoutpatient with excellent control per recent A1c. * Patient is stable enough to resume home Metformin therapy this evening with dinner. * Appropriate to DC insulin and resume outpatient antidiabetic regimen at discharge. * While inpatient, will continue with only correction factor for Novolog doses in case of high BSG. Will remove carb ratio. * Goal is to maintain BSGs <200 mg/dl (ideally <150 mg/dl) to prevent post op complications - Plan For Inpatient Glycemic Control * Resumed oral Metformin 500 mg BID with dinner today. * Bolus insulin: removed carb ratio. * Continue ACHS Novolog only with correction factor of 30 in case of high BSG. * Pharmacy has entered glycemic orders and is signing off of the glycemic consult. We will no longer be making adjustments to inpatient regimen. Please feel free to re-consult if needed. Thank you.
[2019-10-31] MEDS: METFORMIN HCL 500 MG TAB PO SCH (17:34)
[2019-10-31] MEDS: MAGNESIUM HYDROXIDE SUSP 30 ML UDC PO PRN (19:43)
[2019-10-31] MEDS: SENNA 8.6 MG TAB PO SCH (21:24)
[2019-10-31] MEDS: ATORVASTATIN 40 MG TAB PO SCH (21:24)
[2019-11-01] MEDS: KETOROLAC TROMETHAMINE 15 MG/ML VIAL IV SCH ×2 (03:51→07:56)
[2019-11-01] MEDS: ACETAMINOPHEN 500 MG TAB PO SCH ×2 (05:36→13:01)
[2019-11-01] MEDS: CALCIUM 600MG + VIT D 400 IU TAB PO SCH (07:53)
[2019-11-01] MEDS: ASCORBIC ACID 500 MG TAB PO SCH (07:53)
[2019-11-01] MEDS: FERROUS GLUCONATE 324 MG TAB PO SCH (07:53)
[2019-11-01] MEDS: ASPIRIN 81 MG ECTAB PO SCH (07:54)
[2019-11-01] MEDS: METFORMIN HCL 500 MG TAB PO SCH (07:55)
[2019-11-01] MEDS: GABAPENTIN 100 MG CAP PO SCH (07:55)
[2019-11-01] MEDS: MULTIVITAMIN TAB PO SCH (07:55)
[2019-11-01] MEDS: PANTOprazole 40 MG TAB PO SCH (07:56)
[2019-11-01] MEDS: lisinopriL 10 MG TAB PO SCH (07:56)
[2019-11-01] MEDS: DOCUSATE SODIUM 100 MG CAP PO SCH (07:59)
--- NOTE | 2019-11-01 08:43 | Progress Notes ---
DATE: 11/01/2019 SUBJECTIVE: A 74-year-old white female postop day 2 from a left knee replacement. She is doing okay. Had a kind of a rough day yesterday. Doing a little bit better this morning. No chest pain or shortness of breath. Not feeling dizzy or lightheaded. OBJECTIVE: VITAL SIGNS: Temperature 36.7. Vital signs stable. GENERAL: Shows a pleasant, middle-aged female. She is lying in bed, looks pretty comfortable. EXTREMITIES: Examination of the left leg reveals the leg to be well aligned. Dressing is clean, dry and intact. Calf is soft and supple. She is neurologically intact. ASSESSMENT: A 74-year-old white female postoperative day 2 from left knee replacement, doing reasonably well. Some pain, not unexpected. PLAN: 1. DVT prophylaxis including thigh-high TEDs, SCDs, and aspirin twice a day. 2. PT/OT. Weight bear as tolerated. Left total knee protocol. 3. Pain control, doing pretty well with current pain regimen. 4. Disposition: Plan to discharge to home with some home health likely later today.
[2019-11-01] MEDS: INSULIN ASPART 100 UNITS/ML 3 ML PEN SC SCH ×2 (09:50→12:09)
[2019-11-01] MEDS: MAGNESIUM HYDROXIDE SUSP 30 ML UDC PO PRN (10:56)
--- NOTE | 2019-11-06 13:46 | Discharge Summary ---
Date of Service November 06, 2019 Admission HPI Per Admitting Provider Patient is a 74-year-old female who is been a long history of bilateral knee pain discomfort. She underwent a right knee replacement about 3 years ago is done well from this. She is contining to be limited by left knee pain and discomfort. She also failed all conservative measures. She elected to proceed with total knee arthroplasty. Admission Exam (Per Admitting) Constitutional WD/WN, vitals as above Eyes PERRL, conjunctivae normal, anicteric sclerae ENMT external ear and nose normal, oropharynx normal Neck trachea midline, no thyromegaly Gastrointestinal (Abdomen) Inspection/Auscultation: abdomen normal to inspection Musculoskeletal Stiff knee gait. She has got small knee effusion. Knee alignment looks pretty straight. Range of motion about 5 degrees short of full extension to 120 degrees of flexion. No instability. Skin no rashes, warm and dry Discharge Data Consultations 10/30/19 14:17 Consult Case Management - Discharge Planning Routine Procedures Performed Operation Date: 10/30/19 10:40 Actual Procedures p Left Total Knee Arthroplasty, Cemented(Left) - Jose Winter MD Hospital Course (1) H/O total knee replacement: On October 29, Patria was admitted to [facility] to undergo a left TKA. She tolerated the procedure well and was taken to recovery before being admitted to the orthopedic floor. On post-op day number 1 she was doing well and was working with PT. She continued to improve on post-op day number 2 and was d/c to home with home care after being cleared by PT. Discharge Instructions 1. DVT prophylaxis include thigh-high TEDs, SCDs and aspirin twice a day. 2. PT/OT, weightbear as tolerated. Left total knee protocol. 3. Pain control, doing pretty well with current pain regimen. 4. She will follow-up with Dr. Winter in 2 weeks. Coding Level of Care Code D/C Day Management <30 mins Diagnoses H/O total knee replacement Z96.659
== END 2019-11-01 13:42 | disposition home health service (06) | DRG 470 ==
LOC: ASU 08:18 → 3E 13:49